=== PATIENT | female | born 2000 | race Caucasian/White ===

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

== ENCOUNTER 2025-02-26 03:17 | Emergency (ER) | payer OTHER ==
[~2025-02-26] VITALS: Ht 152.4 cm; Wt 44.9 kg
== END 2025-02-26 03:20 | disposition left against medical advice (07) ==
LOC: ER 03:17
DX: Z53.21 Procedure and treatment not carried out due to patient leaving prior to being seen by health care provider (principal)